=== PATIENT | female | born 1965 | race Caucasian/White ===

== ENCOUNTER 2020-11-20 11:04 | Outpatient (CLI) | payer OTHER | END 2020-11-20 11:05 | disposition home or self-care (01) | LOC: CSHCT 11:04 | PROVIDERS: ATTEND Specialist | DX: R10.9 Unspecified abdominal pain (principal); K57.90 Diverticulosis of intestine, part unspecified, without perforation or abscess without bleeding | CPT/HCPCS: 74178 ==